=== PATIENT | male | born 1980 | race Asian ===

== ENCOUNTER 2016-08-08 09:31 | Emergency (ER) | payer OTHER ==
[~2016-08-08] VITALS: Wt 76.4 kg
--- NOTE | 2016-08-08 11:31 | ERD ---
ER Documentation Chief Complaint Date/Time DATE: 08/08/16 TIME: 11:24 Chief Complaint cp yest, seen at clinic, see attached ekg, cp resolved today HPI 35-year-old male complaining of chest pain yesterday. States the pain is "poking-like" on the left side, and radiates to his left shoulder and left upper back. The pain lasted about 5-10 minutes, associated with shortness of breath. He was seen at an urgent care yesterday for the pain. Was told that he has abnormal EKG. Paramedics was called, but he signed AMA. He took aspirin last night. He came here today to be checked. Patient states that he has chest pain like this about 4-5 times in the last 1 month. He often will have the pain when he is stressed at work. He denies any chest pain at this time, but reports "feeling heavy". Patient has history of sleep apnea, and asthma as a child. Denies any recent asthma symptoms. Denies any other medical history. Denies any medications besides aspirin last night. Family history of diabetes. Denies family history of heart disease. He had a history of smoking and drug use, but quit more than 10 years ago. Denies recent use. Alcohol on occasion. ROS All systems reviewed and are negative except as per history of present illness. Medications Home Meds Active Scripts Metformin* (Glucophage*) 500 Mg Tab, 500 MG PO BID, #60 TAB Prov:ANNAMEETA Meghan. CLIENT SERVICE SUPERVISOR 08/08/16 Allergies Allergies: Coded Allergies: No Known Allergy (Unverified , 08/08/16) PMhx/Soc Sleep apnea, childhood asthma Physical Exam Vitals Vital Signs Date Time Temp Pulse Resp B/P Pulse Ox O2 Delivery O2 Flow Rate FiO2 08/08/16 13:50 98.2 82 18 116/83 98 Room Air 08/08/16 09:40 98.1 77 20 136/68 98 Physical Exam General impression: Well-developed, well-nourished. Alert, oriented, in no acute distress Head: Normocephalic, atraumatic. Neck: Supple, nontender. No lymphadenopathy. No nuchal rigidity. Respiration: Normal respiratory effort. Lungs clear to auscultate bilaterally. No wheezes, rales or rhonchi. Cardiovascular: Regular rate and rhythm. No murmurs or extra heart sounds. No chest wall tenderness to palpation. Abdomen: Abdomen normal to inspection. Nontender. No masses or organomegaly. Bowel sounds normal. Back: Normal to inspection. No midline spine tenderness. No CVA tenderness. Extremities: Extremities normal to inspection, nontender. ROM normal. Neuro: Mental status normal, speech normal. SPOOL FIXER grossly intact. Skin: Normal turgor. No rash or lesions. Psych: Normal mood and affect. Result Diagram: 08/08/16 1200 08/08/16 1200 Results 24 hrs Laboratory Tests Test 08/08/16 12:00 White Blood Count 8.810^3/ul Red Blood Count 5.6910^6/ul Hemoglobin 17.3g/dl Hematocrit 51.7% Mean Corpuscular Volume 90.9fl Mean Corpuscular Hemoglobin 30.4pg Mean Corpuscular Hemoglobin Concent 33.5g/dl Red Cell Distribution Width 12.3% Platelet Count 39495^3/UL Mean Platelet Volume 10.0fl Neutrophils % 48.9% Lymphocytes % 39.5% Monocytes % 7.5% Eosinophils % 2.6% Basophils % 0.7% Nucleated Red Blood Cells % 0.0/100WBC Neutrophils # 4.310^3/ul Lymphocytes # 3.510^3/ul Monocytes # 0.710^3/ul Eosinophils # 0.210^3/ul Basophils # 0.110^3/ul Nucleated Red Blood Cells # 0.010^3/ul Prothrombin Time 12.8Sec Prothrombin Time Ratio 1.0 INR International Normalized Ratio 0.96 Activated Partial Thromboplast Time 27.0Sec Sodium Level 140mmol/L Potassium Level 4.0mmol/L Chloride Level 98mmol/L Carbon Dioxide Level 29mmol/L Anion Gap 17 Blood Urea Nitrogen 18mg/dl Creatinine 0.72mg/dl Glucose Level 274mg/dl Hemoglobin A1c 12.3% Calcium Level 9.4mg/dl Troponin I < 0.012ng/ml PROCEDURE: XR Chest. CLINICAL INDICATION: Chest pain. TECHNIQUE: Single frontal view. COMPARISON: None. FINDINGS: The lungs are clear. The heart size is normal. There is no pleural effusion. There is no pneumothorax. IMPRESSION: 1. Normal chest radiograph. RPTAT: QQ .Trevor Briggs MD, Date Time Electronically viewed and signed by .Trevor Briggs MD, on 08/08/2016 11:58 .R/ CC: MEETA CASTILLO NP Procedures/MDM Well-appearing 35-year-old male presented to ED with intermittent chest pain 1 month. EKG: Normal sinus rhythm with ventricular rate of 81 bpm, right axis. T-wave inversion noted in lead III, early repolarization features in precordial and lateral leads. No ST segment elevation or depression. No ectopic beats. No QT prolongation. No other EKG abnormalities. EKG read by Dr. Granados. EKG today was compared with the EKG done last night. The T-wave inversion on lead III appears to be deeper today than from last night. Otherwise there is no change. Chest x-ray is negative. Troponin is negative. CBC is negative. CMP showed elevated blood glucose at 274. Hemoglobin A1c was obtained. A1c is 12.3. It appears the patient has a new onset type 2 diabetes that has not been previously diagnosed. I will prescribe patient with metformin today, and have him follow-up with his PCP in 2-3 days. It is uncertain because the patient is chest pain at this time, however, I doubt UT, aortic dissection, pneumonia, pneumothorax, or PE. Because of the nonspecific EKG changes, I advised patient to follow-up with the drier and evaporator operator for further evaluation. Patient appears well, stable for discharge and outpatient management. Medical decision making shared with patient and family. Education provided to patient and family. Patient and family expressed understanding of the plan. Medications on discharge: Metformin. Follow-up: Primary care provider in 2-3 days or return to ED if worse. The case was reviewed and discussed with Dr. Granados, who agrees with the plan of care including labs, treatment, and advanced imaging as appropriate. MEETA CASTILLO NP Aug 08, 2016 11:31
--- NOTE | 2016-08-08 11:58 | RADRPT ---
PROCEDURE: XR Chest. CLINICAL INDICATION: Chest pain. TECHNIQUE: Single frontal view. COMPARISON: None. FINDINGS: The lungs are clear. The heart size is normal. There is no pleural effusion. There is no pneumothorax. IMPRESSION: 1. Normal chest radiograph. RPTAT: QQ .Trevor Briggs MD, Date Time Electronically viewed and signed by .Trevor Briggs MD, on 08/08/2016 11:58 .R/
[2016-08-08 12:18] LABS: ADD SCAN DIFF NO
[2016-08-08 12:22] LABS: BASOPHIL # 0.1 10^3/ul (0.0-0.1); BASOPHILS % 0.7 % (0.0-2.0); EOSINOPHILS # 0.2 10^3/ul (0.0-0.5); EOSINOPHILS % 2.6 % (0.0-7.0); HEMATOCRIT 51.7 % (42.0-52.0); HEMOGLOBIN 17.3 g/dl (14.0-18.0); LYMPHOCYTES # 3.5 10^3/ul (0.8-2.9); LYMPHOCYTES % 39.5 % (15.0-51.0); MEAN CORPUSCULAR HEMOGLOBIN 30.4 pg (29.0-33.0); MEAN CORPUSCULAR HGB CONC 33.5 g/dl (32.0-37.0); MEAN CORPUSCULAR VOLUME 90.9 fl (82.0-101.0); MONOCYTE # 0.7 10^3/ul (0.3-0.9); MONOCYTES % 7.5 % (0.0-11.0); NEUTROPHIL # 4.3 10^3/ul (1.6-7.5); NEUTROPHILS % 48.9 % (39.0-77.0); PLATELET COUNT 297 10^3/UL (140-415); RED BLOOD COUNT 5.69 10^6/ul (4.70-6.10); RED CELL DISTRIBUTION WIDTH 12.3 % (11.5-14.5); WHITE BLOOD COUNT 8.8 10^3/ul (4.8-10.8)
[2016-08-08 12:33] LABS: CHLORIDE 98 mmol/L (97-110); SODIUM 140 mmol/L (135-144)
[2016-08-08 12:34] LABS: INR 0.96; PROTIME 12.8 Sec (12.2-14.2)
[2016-08-08 12:36] LABS: ANION GAP 17 (8-16); BLOOD UREA NITROGEN 18 mg/dl (7-20); CARBON DIOXIDE 29 mmol/L (21-31); CREATININE 0.72 mg/dl (0.61-1.24)
[2016-08-08 12:37] LABS: CALCIUM 9.4 mg/dl (8.4-10.2); GLUCOSE 274 mg/dl (70-220)
[2016-08-08 12:49] LABS: TROPONIN-I < 0.012 ng/ml (0.00-0.12)
[2016-08-08] MEDS ORDERED: METF500T4 PO (13:21)
[2016-08-08 13:50] VITALS: BP 116/83; PULSE 82; RESP 18; TEMP 98.2
== END 2016-08-08 13:52 | disposition home or self-care (01) ==
LOC: FTE 09:31
DX: R07.9 Chest pain, unspecified (principal); E11.9 Type 2 diabetes mellitus without complications
CPT/HCPCS: 36415; 71010; 80048; 83036; 84484; 85025; 85610; 85730; 93005